=== PATIENT | male | born 1950 | race Caucasian/White ===

== ENCOUNTER 2021-03-20 07:43 | Emergency (ER) | payer MEDICARE ==
[~2021-03-20] VITALS: Ht 177.8 cm; Wt 88.1 kg
--- NOTE | 2021-03-20 08:08 | PHYS DOC ---
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 Onset was this morning. States he woke up and had a bowel movement losing approximately 12 ounces of bright red blood per rectum. He has had external hemorrhoids in the past but reports amount of bleeding this time was vastly different. He had a subsequent episode of bright red bloody stool prompting him to come to ER for evaluation. He subsequently had an additional episode while waiting to come back into the ER. States he has had some mild lower abdominal cramping only, no ripping or tearing sensation in abdomen. No changes in bladder or bowel function. Only intra-abdominal abnormalities in the past have been elective left kidney removal for donation and bilateral inguinal hernia repair. Medically speaking he is very healthy and only treated for diet-controlled diabetes and high cholesterol. He does admit to taking 325 mg aspirin daily. Denies any alcohol abuse. No prior significant GI bleed. No family history or personal history colon cancer with last colonoscopy approximately 8 years ago that was unremarkable Review of Systems Review of Systems Fourteen body systems of review of systems have been reviewed. See HPI for pertinent positives and negative responses, other mckeon all other systems are negative, non-pertinent or non-contributory Allergies Allergies Allergies Coded Allergies Type Severity Reaction Last Updated Verified No Known Drug Allergies 03/20/21 No Physical Exam Physical Exam Constitutional: Well developed, well nourished, no acute distress, non-toxic appearance. HENT: Normocephalic, atraumatic, bilateral external ears normal, oropharynx moist, no oral exudates, nose normal. Eyes: PERRLA, EOMI, conjunctiva normal, no discharge. Neck: Normal range of motion, no tenderness, supple, no stridor. Cardiovascular: Heart rate regular, sinus rhythm, no murmurs rubs or gallops Lungs & Thorax: Bilateral breath sounds clear to auscultation Abdomen: Bowel sounds normal, soft, no tenderness, no masses, no pulsatile masses. Nonsurgical abdomen, no peritoneal signs : Rectal exam performed, unremarkable external sphincter with no obvious external hemorrhoids, anal sphincter intact, BEAU performed with unremarkable findings within the rectal vault Skin: Warm, dry, no erythema, no rash. Back: No tenderness, no CVA tenderness. Extremities: No tenderness, no cyanosis, no clubbing, ROM intact, no edema. Neurologic: Alert and oriented X 3, grossly normal motor & sensory function, no focal deficits noted. Psychologic: Affect normal, judgement normal, mood normal. Current Patient Data Vital Signs Vital Signs Date Time Temp Pulse Resp B/P (MAP) Pulse Ox O2 Delivery O2 Flow Rate FiO2 03/20/21 07:58 98.5 95 18 182/105 (130) 97 Room Air Lab Results Laboratory Tests Test 03/20/21 08:20 03/20/21 08:32 Stool Occult Blood Positive White Blood Count 7.8 x10^3/uL Red Blood Count 4.63 x10^6/uL Hemoglobin 13.9 g/dL Hematocrit 41.7 % Mean Corpuscular Volume 90 fL Mean Corpuscular Hemoglobin 30 pg Mean Corpuscular Hemoglobin Concent 33 g/dL Red Cell Distribution Width 13.0 % Platelet Count 218 x10^3/uL Neutrophils (%) (Auto) 58 % Lymphocytes (%) (Auto) 32 % Monocytes (%) (Auto) 8 % Eosinophils (%) (Auto) 2 % Basophils (%) (Auto) 0 % Neutrophils # (Auto) 4.6 x10^3uL Lymphocytes # (Auto) 2.5 x10^3/uL Monocytes # (Auto) 0.6 x10^3/uL Eosinophils # (Auto) 0.1 x10^3/uL Basophils # (Auto) 0.0 x10^3/uL Prothrombin Time 10.6 SEC Prothromb Time International Ratio 1.0 Activated Partial Thromboplast Time 26 SEC Sodium Level 139 mmol/L Potassium Level 4.5 mmol/L Chloride Level 103 mmol/L Carbon Dioxide Level 30 mmol/L Anion Gap 6 Blood Urea Nitrogen 21 mg/dL Creatinine 1.4 mg/dL Estimated GFR (Cockcroft-Gault) 50.4 BUN/Creatinine Ratio 15 Glucose Level 154 mg/dL Lactic Acid Level 1.4 mmol/L Calcium Level 9.7 mg/dL Total Bilirubin 0.5 mg/dL Aspartate Amino Transf (AST/SGOT) 18 U/L Alanine Aminotransferase (ALT/SGPT) 28 U/L Alkaline Phosphatase 54 U/L Troponin I High Sensitivity 103 ng/L Total Protein 7.4 g/dL Albumin 4.1 g/dL Albumin/Globulin Ratio 1.2 Current Medications Medications (Trade) Dose Ordered Sig/Alec Route PRN Reason Start Time Stop Time Status Last Admin Dose Admin Sodium Chloride 1,000 ml @ 1,000 mls/hr 1X ONCE IV 03/20/21 08:30 03/20/21 09:29 DC 03/20/21 08:47 Iohexol (Omnipaque 350 Mg/ml) 100 ml 1X ONCE IV 03/20/21 08:45 03/20/21 08:56 DC 03/20/21 09:53 EKG EKG EKG ordered and interpreted by myself at 0838 hrs. as sinus rhythm 83 bpm, unremarkable intervals, left axis deviation, no obvious ischemic findings, no STEMI Radiology/Procedures Radiology/Procedures CTA ABDOMEN AND PELVIS WITHOUT IV CONTRAST History: lower gi bleed bright red blood Comparison: None. Technique: After administration of intravenous contrast, helical CT of the abdomen and pelvis was performed from the lung bases through the ischial tuberosities. Coronal and sagittal reconstructions were obtained. MIP reconstructions were performed. 100 mL of Omnipaque 350 were used. One or more of the following dose reduction techniques were utilized: Automated exposure control (AEC), Adjustment of mA and/or kV according to patient size, Use of iterative reconstruction technique such as ASiR, CT scan done according to ALARA and image gently/image wisely Abdomen Findings: The visualized lung bases are clear. The liver, gallbladder, pancreas, spleen, and bilateral adrenal glands are normal. Left nephrectomy. Right renal lower pole low-attenuation focus, too small to characterize but probably a cyst. No hydronephrosis. Accessory right renal artery. The visualized loops of small bowel are normal. Colonic diverticulosis. Small amount of high density material with in the colon in the region of the hepatic flexure. Appendix is normal. Rectosigmoid wall thickening. There is no free fluid. There is no mesenteric or retroperitoneal adenopathy. The abdominal aorta is normal in caliber. Pelvis Findings: Urinary bladder is normal. No pelvic free fluid. There is no pelvic or inguinal adenopathy. There is no acute bony abnormality. Degenerative changes of the spine. IMPRESSION: 1. Small amount of high density material within the colon at the region of the hepatic flexure. Given history of active GI bleed this could represent active extravasation of contrast, although there is no noncontrast CT for comparison. 2. There is some rectosigmoid wall thickening, which could relate to underdistention, be reactive, or possibly a segmental colitis. Electronically signed by: Chester Burns MD (03/20/2021 10:36 AM) [id number] Heart Score C/O Chest Pain: No HEART Score for Chest Pain: HEART Score for Chest Pain Response (Comments) Value History Slighlty/Non-Suspicious 0 ECG Nonspecific Repolarizatio 1 Age > 65 2 Risk Factors >3 Risk Factors or Hx CAD 2 Troponin < Normal Limit 0 Total 5 Risk Factors: Risk Factors: DM, Current or recent (<one month) smoker, HTN, HLP, family history of CAD, obesity. Risk Scores: Risk Factors: DM, Current or recent (<one month) smoker, HTN, HLP, family history of CAD, obesity. Course & Med Decision Making Course & Med Decision Making Airway patent, breathing unlabored, IV access and vitals obtained concerning for high blood pressure only HPI physical exam comprehensive ER work-up concerning for GI bleed likely due to 325 mg aspirin use daily. Admits this is not prescribed, he just read it was supposed to be good for his health and has been taking this for years. No colon cancer history, last colonoscopy 8yr ago and normal Patient also has elevated troponin, unremarkable EKG and no active chest pain. No indication for emergent blood transfusion or other aggressive intervention at present but I did disclose need for hospital transfer for GI consultation. I contacted hospitalist at [facility] who agreed need for transfer and accepted patient under his care I have updated patient and at bedside on proposed plan of care that i ncluded hospital transfer via ambulance for admission and they were amenable. All questions and concerns addressed prior to hospital transfer for admission Dragon Disclaimer Dragon Disclaimer This electronic medical record was generated, in whole or in part, using a voice recognition dictation system. Departure Departure: Impression: Primary Impression: GI bleed due to NSAIDs Additional Impression: Elevated troponin Disposition: [facility] ([facility]) Admitting Physician: Other (dr zhao) Condition: STABLE Referrals: PCP,UNKNOWN (PCP) Problem Qualifiers ROQUE HOOD DO Mar 20, 2021 08:08
[2021-03-20] MEDS ORDERED: IV NORMAL SALINE 1,000ML 1,000 ML IV ONE ×2 (08:30→11:45)
[2021-03-20] MEDS ORDERED: IOHEXOL 350 MG/ML 100 ML VIAL. IV ONE (08:45)
[2021-03-20 08:46] LABS: FECAL OB PT POSITIVE (NEG)
[2021-03-20 08:59] LABS: BASO % 0 % (0-3); EOS # 0.1 x10^3/uL (0.0-0.7); EOS % 2 % (0-3); HEMATOCRIT 41.7 % (39.0-53.0); HEMOGLOBIN 13.9 g/dL (13.0-17.5); LYMPH # 2.5 x10^3/uL (1.0-4.8); LYMPH % 32 % (24-48); MEAN CORPUSCULAR HEMOGLOBIN 30 pg (25-35); MEAN CORPUSCULAR HGB CONC 33 g/dL (31-37); MEAN CORPUSCULAR VOLUME 90 fL (79-100); MONO # 0.6 x10^3/uL (0.0-1.1); MONO % 8 % (0-9); NEUT # 4.6 x10^3uL (1.8-7.7); NEUT % 58 % (31-73); PLATELET COUNT 218 x10^3/uL (140-400); RED BLOOD COUNT 4.63 x10^6/uL (4.30-5.70); WHITE BLOOD COUNT 7.8 x10^3/uL (4.0-11.0)
[2021-03-20 09:13] LABS: CALCIUM 9.7 mg/dL (8.5-10.1); CREATININE 1.4 mg/dL (0.7-1.3); GFR 50.4; POTASSIUM 4.5 mmol/L (3.5-5.1)
[2021-03-20 09:19] LABS: ALBUMIN 4.1 g/dL (3.4-5.0); ALBUMIN/GLOBULIN RATIO 1.2 (1.0-1.7); TOTAL BILIRUBIN 0.5 mg/dL (0.2-1.0); TOTAL PROTEIN 7.4 g/dL (6.4-8.2)
--- NOTE | 2021-03-20 10:38 | RAD ---
CTA ABDOMEN AND PELVIS WITHOUT IV CONTRAST History: lower gi bleed bright red blood Comparison: None. Technique: After administration of intravenous contrast, helical CT of the abdomen and pelvis was per formed from the lung bases through the ischial tuberosities. Coronal and sagittal reconstructions wer e obtained. MIP reconstructions were performed. 100 mL of Omnipaque 350 were used. One or more of the following dose reduction techniques were utilized: Automated exposure control (AEC), Adjustment of m A and/or kV according to patient size, Use of iterative reconstruction technique such as ASiR, CT sca n done according to ALARA and image gently/image wisely Abdomen Findings: The visualized lung bases are clear. The liver, gallbladder, pancreas, spleen, and bilateral adrenal glands are normal. Left nephrectomy. Right renal lower pole low-attenuation focus, too small to characterize but probabl y a cyst. No hydronephrosis. Accessory right renal artery. The visualized loops of small bowel are normal. Colonic diverticulosis. Small amount of high density material with in the colon in the region of the hepatic flexure. Appendix is normal. Rectosigmoid wal l thickening. There is no free fluid. There is no mesenteric or retroperitoneal adenopathy. The abdominal aorta is normal in caliber. Pelvis Findings: Urinary bladder is normal. No pelvic free fluid. There is no pelvic or inguinal adenopathy. There is no acute bony abnormality. Degenerative changes of the spine. IMPRESSION: 1. Small amount of high density material within the colon at the region of the hepatic flexure. Given history of active GI bleed this could represent active extravasation of contrast, although there is no noncontrast CT for comparison. 2. There is some rectosigmoid wall thickening, which could relate to underdistention, be reactive, or possibly a segmental colitis. Electronically signed by: Chester Burns MD (03/20/2021 10:36 AM) [id number]
[2021-03-20] MEDS ORDERED: ONDANSETRON PF 4 MG/2 ML VIAL. IVP ONE (11:45)
[2021-03-20 12:38] VITALS: BP 118/65
--- NOTE | 2021-03-20 12:41 | RAD ---
CT HEAD AND C-SPINE WO History: Reason: unwitnessed fall / Spl. Instructions: / History: . Pain Comparison: None. Technique: Noncontrast CT imaging was performed of the head and cervical spine. Coronal and sagittal reconstructions were performed. Exposure: One or more of the following individualized dose reduction techniques were utilized for thi s examination: 1. Automated exposure control 2. Adjustment of the mA and/or kV according to patient size 3. Use of iterative reconstruction technique. Findings: Head CT: No intracranial hemorrhage. No mass effect. No hydrocephalus. Mild foci of decreased attenuation within the hemispheric white matter, most often due to chronic bella rovascular ischemia. Imaged orbits are unremarkable. Imaged paranasal sinuses and mastoid air cells are clear. No acute ca lvarial fracture. Cervical spine CT: Slight grade 1 anterolisthesis C2 on C3 and C3 on C4. Normal vertebral body height. No acute fracture . Moderate degenerative disc changes most prominent C3-C4, C5-C6 and C6-C7. Facet arthropathy, left gre ater than right. No high-grade canal narrowing. Multilevel neuroforaminal narrowing. Soft tissues unremarkable. Impression: Head CT: 1. No acute intracranial abnormality. Cervical spine CT: 1. No acute fracture or subluxation of the cervical spine. 2. Moderate cervical spondylosis. Electronically signed by: Honorio Walton DO (03/20/2021 12:38 PM) [facility]
[2021-03-20 12:52] VITALS: BP 132/73
--- NOTE | 2021-03-20 12:57 | EKG ---
[address] [address] Test Date: 2021-03-20 Test Time: 11:37:51 Pat Name: DUSTY MOESLEY Department: Room: Gender: M [employer]sc[employer] Director: MARLA : 1950 Requested By: ROQUE HOOD Order Number: [id number] Reading MD: Tod Shaffer Measurements Intervals [place] Rate: 40 P: [place]: QRS: -13 QRSD: 86 T: -11 QT: 466 QTc: 385 Interpretive Statements VENTRICULAR RHYTHM LEFTWARD AXIS INCOMPLETE RIGHT BUNDLE BRANCH BLOCK ABNORMAL ECG RI6.02 No previous ECG available for comparison Electronically Signed On 03-22-2021 9:31:34 SENIOR TELECOMMUNICATIONS TECHNICIAN by Tod Shaffer
--- NOTE | 2021-03-20 13:02 | EKG ---
[address] [address] Test Date: 2021-03-20 Test Time: 12:46:57 Pat Name: DUSTY MOSELEY Department: Room: Gender: M Appeals Specialist: MARLA : 1950 Requested By: ROQUE HOOD Order Number: [id number] Reading MD: Tod Shaffer Measurements Intervals [place] Rate: 73 P: 47 [place]: 164 QRS: -9 QRSD: 82 T: 34 QT: 406 QTc: 451 Interpretive Statements SINUS RHYTHM LEFTWARD AXIS RI6.02 Compared to ECG 03/20/2021 11:37:51 Incomplete right bundle-branch block no longer present Electronically Signed On 03-22-2021 9:30:14 VENDOR QUALITY SUPERVISOR by Tod Shaffer
--- NOTE | 2021-03-20 13:02 | EKG ---
[address] [address] Test Date: 2021-03-20 Test Time: 08:32:08 Pat Name: DUSTY MOSELEY Department: Room: Gender: M Manager Spring: MARLA : 1950 Requested By: ROQUE HOOD Order Number: [id number] Reading MD: Tod Shaffer Measurements Intervals [place] Rate: 83 P: 39 [place]: 158 QRS: -26 QRSD: 90 T: 37 QT: 374 QTc: 440 Interpretive Statements SINUS RHYTHM VENTRICULAR PREMATURE COMPLEX(ES) LEFTWARD AXIS S1,S2,S3 PATTERN ABNORMAL ECG RI6.02 No previous ECG available for comparison Electronically Signed On 03-22-2021 9:31:51 SPAR FINISHER by Tod Shaffer
[2021-03-20 13:30] VITALS: BP 119/65
[2021-03-20 13:50] VITALS: BP 131/71
--- NOTE | 2021-03-20 13:52 | RAD ---
CT THORACIC SPINE WO 03/20/2021 1:02 PM Indication: Reason: point tenderness t6 after fall / Spl. Instructions: / History: Comparison: None. Technique: CT imaging of the thoracic spine was performed without contrast. Coronal and sagittal ref ormatted images were performed. One or more of the following dose reduction techniques were utilized: Automated exposure control (AEC), Adjustment of mA and/or kV according to patient size, Use of itera tive reconstruction technique such as ASiR, CT scan done according to ALARA and image gently/image wi sely. Findings: The thoracic spine is normally aligned. No acute fracture. Vertebral body heights are maintained with out compression deformity. Multilevel degenerative disc height loss. No aggressive lytic or blastic o sseous lesion. No significant spinal canal stenosis or neural foraminal narrowing. The visualized lungs are clear. No pleural effusion. The visualized thoracic aorta is normal caliber. Impression: No acute osseous abnormality of the thoracic spine. Electronically signed by: Chester Burns MD (03/20/2021 1:50 PM) [facility]
[2021-03-20 17:24] VITALS: BP 150/85
== END 2021-03-20 17:51 | disposition short-term general hospital (02) ==
LOC: ER 07:43
DX: K92.2 Gastrointestinal hemorrhage, unspecified (principal); T39.395A Adverse effect of other nonsteroidal anti-inflammatory drugs [NSAID], initial encounter; R77.8 Other specified abnormalities of plasma proteins; Y92.89 Other specified places as the place of occurrence of the external cause
CPT/HCPCS: 36415; 36430; 70450; 72125; 72128; 74174; 80053; 82274; 82947; 83605; 84484; 85025; 85610; 85730; 86850; 86900; 86901; 86920; 93005; 96361; 96374; 99291; J2405; J7030; P9016; Q9967